=== PATIENT | male | born 1975 | race Caucasian/White ===

== ENCOUNTER 2016-04-21 14:30 | Emergency (ER) | payer MEDICAID, OTHER ==
[2016-04-21 14:44] VITALS: BP 148/91
--- NOTE | 2016-04-21 15:00 | UC ---
Abdominal Pain Male HPI - HPI Summary HPI Summary: The patient comes in today for: 1. Abdominal pain: Onset: 3 days ago. Palliative/provocative: Deep breathing makes it worse. Otherwise nothing else makes it better or worse except an 81 mg aspirin which he thought helped. Quality: Pressure. Region: Epigastric with no radiation. Severity: 8-9/10 Time: Constant. Associated symptoms: Event: He got the "flu" a couple weeks ago. Initially, he only had "extreme" nausea. He vomited 12-15 times. No diarrhea. He had no pain initially. But, by the end of the day, he did. It is centered in the epigastric area. He states that it is a "gassy" feeling. He states that it is a "pressure" feeling. The following day he felt better. He only vomited three times. The vomit was clear to yellow. But, the following day (this past Saturday ) he was like Saturday when the problem started. He only vomited about 10 times. He had nausea and abdominal pain for all of Saturday. Today, he is better with food intake. He has had a 12 oz can of nathan aura, plus 2 cups of chicken broth--and also 8 oz of peaches at 10 AM. Urination today is "good" with color is "light yellow." Nausea initially 10/10, and today 1/10. The abdominal pain is 8/10 9/10. Fevers: None. Previous history: He denies any PUD, pancreatitis or gallbladder disease. He has had a diagnosis of Hodgkins Disease noticed in his left neck in 2008. He [place] [facility] [place] He had chemotherapy. He had in the neck and the lungs , but not known to be in the abdomen. He finished the chemotherapy in 2009. He had no radiation. He has been in remission ever since. He saw Dr. Hyman 3 years ago. He is 2 years overdue. Other facts: In December of 2015, he was diagnosed as having sinusitis and put on doxycycline and albuterol inhaler. But, he only took "about half" of the doxycycline. He started taking the doxycycline yesterday, taking three pills. He states that these three pills cleared up his recent sinus infection. He took his last dose yesterday. * - History of Current Complaint Chief Complaint: UCAbdominalPain Stated Complaint: STOMACH COMPLAINT Time Seen by Provider: 04/21/16 14:50 Hx Obtained From: Patient, Family/Merchandise Executive - Allergies/Home Medications Allergies/Adverse Reactions: Allergies Allergy/AdvReac Type Severity Reaction Status Date / Time Penicillins Allergy Rash Verified 04/21/16 14:38 PMH/Surg Hx/FS Hx/Imm Hx Previously Healthy: No - Hodgkins lymphoma 2009, last onc. review 2 years ago. Endocrine History Of: Denies: Diabetes, Thyroid Disease, Hyperthyroidism, Hypothyroidism, Dyslipidemia Cardiovascular History Of: Denies: Cardiac Disorders, Hypertension, Pacemaker/ICD, Myocardial Infarction , Congestive Heart Failure, Atrial Fibrillation, Deep Vein Thrombosis, Bleeding Disorders Respiratory History Of: Denies: COPD, Asthma, Bronchitis, Pneumonia, Pulmonary Embolism GI/ History Of: Denies: Gastroesophageal Reflux, Ulcer, Gastrointestinal Bleed, Gall Bladder Disease, Kidney Stones, Diverticulitis, Renal Disease, Urosepsis Neurological History Of: Denies: TIA, CVA, Dementia, Seizures, Migraine Psychological History Of: Reports: Anxiety - He states that he is feeling anxious at this time. He normally does not Denies: Depression, Bipolar Disorder, Schizophrenia, Post Traumatic Stress Disorder Cancer History Of: Denies: Lung Cancer, Colorectal Cancer, Breast Cancer, Prostate Cancer, Cervical Cancer Other History Of: Negative For: HIV, Hepatitis B, Hepatitis C, Anticoagulant Therapy - Surgical History Surgical History: Yes Surgery Procedure, Year, and Place: lymph node removal - Family History Known Family History: Positive: Cardiac Disease Negative: Hypertension - Social History Occupation: Unemployed Alcohol Use: Occasionally Substance Use Type: Marijuana Smoking Status (MU): Former Smoker - Immunization History Most Recent Influenza Vaccination: none Review of Systems Constitutional: Negative Skin: Negative Eyes: Negative ENT: Negative Respiratory: Negative Cardiovascular: Negative Gastrointestinal: Abdominal Pain Genitourinary: Negative All Other Systems Reviewed And Are Negative: Yes Physical Exam Triage Information Reviewed: Yes Appearance: Well-Appearing, No Pain Distress - He complains of pain, but does not seem, Well-Nourished Vital Signs: Initial Vital Signs Temp 97.8 F 04/21/16 14:39 Pulse 66 04/21/16 14:39 Resp 16 04/21/16 14:39 BP 148/91 04/21/16 14:39 Pulse Ox 97 04/21/16 14:39 Vital Signs Reviewed: Yes Eyes: Positive: Conjunctiva Clear. Negative: Discharge ENT: Positive: Hearing grossly normal. Negative: Pharyngeal erythema, Nasal congestion, Nasal drainage, TM bulging, TM dull, TM red, Tonsillar swelling, Tonsillar exudate Dental: Negative: Gross Decay/Caries @, Dental Fracture @ Neck: Positive: Supple, Nontender, No Lymphadenopathy. Negative: Nuchal Rigidity Respiratory: Positive: Lungs clear, No respiratory distress, No accessory muscle use. Negative: Rhonchi, Wheezing Cardiovascular: Positive: RRR, No Murmur Abdomen Description: Positive: No Organomegaly, Soft. Negative: Nontender - He has tenderness to deep palpation of the epigastric area. There is no rebound or masses, but he has increased subcutaenous fat., Distended, Guarding, Hepatomegaly, Peritoneal Signs, Pulsatile Mass Musculoskeletal: Positive: Strength Intact, ROM Intact, No Edema Neurological: Positive: Alert, Muscle Tone Normal Psychological: Positive: Age Appropriate Behavior, Consolable Skin: Negative: rashes, breakdown Abd Pain Male Course/Dx - Course Course Of Treatment: Patient was told that due to his degree of pain (8-9/10) and his history of Hodgkins Lymphoma, and the fact that we can't rule out other causes of pain which can be life threatening, my recommendation was for him to go to the ER. He stated that he will go with his driving him. He requested some medication to help with anxiety. - Differential Dx/Clinical Impression Provider Diagnoses: ABdominal pain, history of Hodgkins Lymphoma 2008, last oncology visit 3 years ago. - Physician Notification/Consults Discussed Patient Care With: Dr. Coyne Time Discussed With Above Provider: 15:35 Discharge - Discharge Plan Condition: Stable Disposition: AGAINST MEDICAL ADVICE Additional Instructions: Please go directly to [place] [facility] [place].
[2016-04-21] MEDS ORDERED: LORazepam TAB(*) 1 MG PO ONE (15:29)
== END 2016-04-21 15:40 | disposition left against medical advice (07) ==
LOC: UCEAST 14:30
DX: R10.13 Epigastric pain (principal); Z85.71 Personal history of Hodgkin lymphoma; Z92.21 Personal history of antineoplastic chemotherapy
CPT/HCPCS: A9270-GY

== ENCOUNTER 2017-12-29 15:23 | Emergency (ER) | payer MEDICAID, OTHER ==
--- NOTE | 2017-12-29 15:35 | UC ---
Respiratory Complaint HPI - HPI Summary HPI Summary: 42 yo male presents with cough and chest congestion for the last 5 days. He has been taking OTC dayquill, nyquill, and ibuprofen with no relief. He does not smoke cigarettes, but does smoke "herb". Denies fever, chills, sore throat, sinus symptoms, SOB, chest pain. - History of Current Complaint Stated Complaint: COUGH,COLD Time Seen by Provider: 12/29/17 15:35 Hx Obtained From: Patient Onset/Duration: Gradual Onset Severity Initially: Mild Severity Currently: Moderate Pain Intensity: 7 Pain Scale Used: 0-10 Numeric Character: Cough: Nonproductive - Allergies/Home Medications Allergies/Adverse Reactions: Allergies Allergy/AdvReac Type Severity Reaction Status Date / Time Penicillins Allergy Rash Verified 12/29/17 15:40 PMH/Surg Hx/FS Hx/Imm Hx - Additional Past Medical History Additional PMH: None Other History Of: Negative For: HIV, Hepatitis B, Hepatitis C, Anticoagulant Therapy - Surgical History Surgical History: Yes Surgery Procedure, Year, and Place: lymph node removal - Family History Known Family History: Positive: Cardiac Disease Negative: Hypertension - Social History Occupation: Employed Full-time Lives: With Family Alcohol Use: Occasionally Substance Use Type: Marijuana Smoking Status (MU): Former Smoker - Immunization History Most Recent Influenza Vaccination: none Review of Systems Constitutional: Negative Skin: Negative Eyes: Negative ENT: Negative Respiratory: Cough Cardiovascular: Negative Gastrointestinal: Negative Neurological: Negative Psychological: Negative All Other Systems Reviewed And Are Negative: Yes Physical Exam - Summary Physical Exam Summary: GENERAL: NAD. WDWN. No pain distress. SKIN: No rashes, sores, lesions, or open wounds. HEENT: Head: AT/NC Eyes: Conjunctiva clear without inflammation or discharge. Ears: Hearing grossly normal. TMs intact, no bulging, erythema, or edema. Nose: Nasal mucosa pink and moist. NTTP maxillary and frontal sinus. Throat: Posterior oropharynx without exudates, erythema, or tonsillar enlargement. Uvula midline. NECK: Supple. Nontender. No lymphadenopathy. CHEST: Mild wheezing throughout. Rales b/l lung bases. No accessory muscle use. Breathing comfortably and in no distress. CV: RRR. Without m/r/g. Pulses intact. Cap refill <2seconds NEURO: Alert. PSYCH: Age appropriate behavior. Triage Information Reviewed: Yes Vital Signs: Vital Signs: Temp Pulse Resp BP Pulse Ox 97.4 F 68 18 155/93 98 12/29/17 15:34 12/29/17 15:34 12/29/17 15:34 12/29/17 15:34 12/29/17 15:34 Vital Signs Reviewed: Yes Respiratory Course/Dx - Course Course Of Treatment: Discussed that I would like to order a CXR for him today, but he declined. He did agree to a nebulizer treatment. Albuterol was given with good results. Pt reports feeling better. Lungs with less wheezing, but rales still presents at bases. Rx for Levaquin and tessalon. Advised to return or see PCP if he does not improve or if symptoms worsen. - Differential Dx/Diagnosis Provider Diagnoses: Bronchitis Discharge - Sign-Out/Discharge Documenting (check all that apply): Patient Departure All imaging exams completed and their final reports reviewed: No Studies - Discharge Plan Condition: Stable Disposition: HOME Prescriptions: Benzonatate CAP* [Tessalon 100 MG CAP*] 100 mg PO TID PRN #21 cap PRN Reason: Cough Levofloxacin TAB* [Levaquin TAB*] 750 mg PO DAILY #5 tab Patient Education Materials: Acute Bronchitis (ED) Referrals: No Primary Care Phys,NOPCP [Primary Care Provider] - Additional Instructions: If you develop a fever, shortness of breath, chest pain, new or worsening symptoms - please call your PCP or go to the ED. Your blood pressure was high at todays visit. Please see your primary provider within 4 weeks for recheck and re-evaluation. - Billing Disposition and Condition Condition: STABLE Disposition: Home
[2017-12-29 15:39] VITALS: BP 155/93
[2017-12-29] MEDS ORDERED: Albuterol/Ipratropium NEB.SOL* Albuterol 2.5 MG/Ipratropium 0.5 MG 3 ML INH ONE (15:39)
[2017-12-29] MEDS ORDERED: Albuterol 2.5 MG/3 ML NEB.SOL* (0.083%) INH ONE (15:42)
== END 2017-12-29 16:00 | disposition home or self-care (01) ==
LOC: UCEAST 15:23
DX: J40 Bronchitis, not specified as acute or chronic (principal); Z88.0 Allergy status to penicillin; Z87.891 Personal history of nicotine dependence
CPT/HCPCS: 99202; G0463

== ENCOUNTER 2018-01-01 09:37 | Emergency (ER) | payer OTHER ==
[2018-01-01 09:58] VITALS: BP 138/90
--- NOTE | 2018-01-02 08:06 | UC ---
- Progress Note Progress Note: NO X-RAYS 01/01/18 Discharge - Sign-Out/Discharge Documenting (check all that apply): Patient Departure All imaging exams completed and their final reports reviewed: No Studies - Discharge Plan Condition: Stable Disposition: LEFT WITHOUT BEING SEEN Referrals: No Primary Care Phys,NOPCP [Primary Care Provider] - - Billing Disposition and Condition Condition: STABLE Disposition: Left Without Being Seen
== END 2018-01-01 10:17 | disposition left against medical advice (07) ==
LOC: UCEAST 09:37
DX: Z53.21 Procedure and treatment not carried out due to patient leaving prior to being seen by health care provider (principal)